=== PATIENT | female | born 1970 | race Caucasian/White ===

== ENCOUNTER 2020-06-18 10:00 | Emergency (ER) | payer MEDICAID, OTHER, SELFPAY ==
[2020-06-18 10:09] VITALS: BP 116/69
--- NOTE | 2020-06-18 10:23 | NUR ---
INITIAL PT CONTACT. PT PRESENTS TO THE ED C/O "I HAVE DEMON ATTACKS AND RADIATION ATTACKS AND MY ISLAM MADE ME COME HERE". PT STATES "I NEED A RADIATION TEST KIT, THATS WHY I HAVE ALL THIS HAPPENING". THIS HAS BEEN OCCURING SINCE OCTOBER. PT UPRIGHT ON GURNEY, CALL LIGHT WITHIN REACH. NO NEEDS AT THIS TIME. PT STATES "I JUST FOUND OUT THE RADIATION IS WHY MY HEAD HURTS, I DONT NEED ANY BLOOD WORK DONE". WILL CONTINUE TO MONITOR.
--- NOTE | 2020-06-18 10:49 | NUR ---
Patient given discharge instructions and they have confirmed that they understand the instructions. Patient ambulatory with steady gait.
== END 2020-06-18 10:50 | disposition home or self-care (01) ==
LOC: ED 10:43
DX: F22 Delusional disorders (principal); R51.9 Headache, unspecified; F15.10 Other stimulant abuse, uncomplicated
CPT/HCPCS: 99281